=== PATIENT | male | born 1980 | race Hispanic/Latino ===

== ENCOUNTER 2021-11-18 09:40 | Day surgery (SDC) | payer SELFPAY ==
[~2021-11-18] VITALS: Ht 172.7 cm; Wt 109.8 kg
[~2021-11-18 09:40] MED LIST: ALOE VERA PO; AMOXICILLIN875 MG OR; LIPITOR40 M1 PO; LORTAB 5 OR; MV-ONE PO
[2021-11-18] MEDS ORDERED: PERCOCET 5/321 COMBO PO (11:48)
[2021-11-18 13:40] VITALS: BP 116/73
[2021-11-21] MEDS ORDERED: PERCOCET 5/321 COMBO PO (11:58)
[2021-11-26] MEDS ORDERED: PERCOCET 5/321 COMBO PO (11:48)
== END 2021-11-18 13:45 | disposition home or self-care (01) | DRG 355 ==
LOC: ORM 09:40
PROVIDERS: ATTEND Surgery
PROC: 0WUF0JZ Supplement Abdominal Wall with Synthetic Substitute, Open Approach (ICD-10-PCS; principal; 2021-11-18)
DX: K42.9 Umbilical hernia without obstruction or gangrene (principal)
CPT/HCPCS: C1781; J0131; Q9967